=== PATIENT | male | born 1935 | race Caucasian/White ===

== ENCOUNTER → 2017-02-18 | Outpatient (CLI) | payer MEDICARE, BC | LOC: MW.CHGS 08:00 | PROVIDERS: ATTEND Surgery | DX: K21.9 Gastro-esophageal reflux disease without esophagitis (principal); R10.13 Epigastric pain; R19.4 Change in bowel habit; E11.9 Type 2 diabetes mellitus without complications | CPT/HCPCS: 99204 ==

== ENCOUNTER 2017-03-19 09:13 | Day surgery (SDC) | payer MEDICARE, BC ==
[~2017-03-19 09:13] MED LIST: Lactated Ringers 1,000 ML IV SCH; Midazolam 1 MG/ML 2 ML SDV ONE; Propofol 200 MG/20 ML SDV ONE; fentaNYL 100 MCG/2 ML SDV ONE
--- NOTE | 2017-03-19 10:11 | PCM.PREANE ---
Preanesthetic Assessment - Anesthesia/Transfusion/Family Hx Anesthesia History: Prior Anesthesia Without Reaction Family History of Anesthesia Reaction: No Transfusion History: No Prior Transfusion(s) Intubation History: Unknown - Review of Systems General: No Symptoms Pulmonary: No Symptoms Cardiovascular: No Symptoms Gastrointestinal: Constipation Neurological: No Symptoms Other: Reports: None - Physical Assessment NPO Status Date: 03/19/17 NPO Status Time: 02:00 O2 Sat by Pulse Oximetry: 95 Respiratory Rate: 16 Vital Signs: Last Vital Signs Temp 36.4 C 03/19/17 09:49 Pulse 52 L 03/19/17 09:49 Resp 16 03/19/17 09:49 BP 150/72 H 03/19/17 09:49 Pulse Ox 95 03/19/17 09:49 Height: 1.73 m Weight: 83.007 kg ASA Class: 3 Mental Status: Alert & Oriented x3 Airway Class: Mallampati = 2 Dentition: Reports: Bridge (upper front) Thyro-Mental Finger Breadths: 3 Mouth Opening Finger Breadths: 3 ROM/Head Extension: Limited/Partial Lungs: Clear to auscultation, Normal respiratory effort Cardiovascular: Regular Rate, Regular Rhythm - Allergies Allergies/Adverse Reactions: Allergies Allergy/AdvReac Type Severity Reaction Status Date / Time No Known Allergies Allergy Verified 03/13/16 14:11 - Blood Blood Available: No - Anesthesia Plan Pre-Op Medication Ordered: None - Acknowledgements Anesthesia Type Planned: MAC Pt an Appropriate Candidate for the Planned Anesthesia: Yes Alternatives and Risks of Anesthesia Discussed w Pt/Guardian: Yes Pt/Guardian Understands and Agrees with Anesthesia Plan: Yes PreAnesthesia Questionnaire HEENT History: Reports: Allergic Rhinitis, Cataract, Hard of Hearing Other HEENT History: has bilateral hearing aides but does not wear them, wears glasses Cardiovascular History: Reports: High Cholesterol, Hypertension Other Cardiovascular History: occasionally has pain on left side of chest, states has occasional edema to legs and takes HCTZ when needed Respiratory History: Reports: Asthma, Other (See Below) (some SOB) Gastrointestinal History: Reports: GERD, Hiatal Hernia Genitourinary History: Reports: BPH, Prostate Disorder Musculoskeletal History: Reports: Arthritis, Fracture Other Musculoskeletal History: ribs, right wrist Neurological History: Reports: Vertigo Other Neuro History: had problem with vertigo in december and january of 2017, better now Psychiatric History: Reports: None Endocrine/Metabolic History: Reports: Diabetes, Type II, Hypothyroidism, Other ( See Below) Other Endocrine/Metabolic History: had radioactive iodine for over active thyroid Hematologic History: Reports: None Oncologic (Cancer) History: Reports: None Dermatologic History: Reports: None - Past Surgical History Head Surgeries/Procedures: Reports: None HEENT Surgical History: Reports: Cataract Surgery, Tonsillectomy Cardiovascular Surgical History: Reports: None Respiratory Surgical History: Reports: None GI Surgical History: Reports: Colonoscopy, EGD Male Surgical History: Reports: TURP-Transurethral Resection of Prostate, Other (See Below) Other Male Surgeries/Procedures: removal of cyst left testicle Endocrine Surgical History: Reports: None Neurological Surgical History: Reports: None Musculoskeletal Surgical History: Reports: Arthroscopic Knee (left knee), Other (See Below) Other Musculoskeletal Surgeries/Procedures:: 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 Oncologic Surgical History: Reports: None - SUBSTANCE USE Smoking Status *Q: Former Smoker Tobacco Use Within Last Twelve Months: No Recreational Drug Use History: No - HOME MEDS Home Medications: Home Meds Levothyroxine Sodium [Levoxyl] 137 mcg PO DAILY 03/13/16 [History] Lovastatin 40 mg PO BEDTIME 03/13/16 [History] Metoprolol Tartrate 50 mg PO BEDTIME 03/13/16 [History] Omeprazole 20 mg PO DAILY 03/13/16 [History] amLODIPine [Norvasc] 10 mg PO DAILY 03/13/16 [History] metFORMIN HCl [Glucophage] 500 mg PO DAILY 03/13/16 [History] Albuterol [Ventolin HFA] 2 puff INH ASDIRECTED PRN 03/18/17 [History] Docusate Sodium [Stool Softener] 2 tab PO DAILY 03/18/17 [History] Fish Oil/[place]-3 Fatty Acids [Fish Oil 1,000 MG] 1 tab PO DAILY 03/18/17 [ History] Hydrochlorothiazide 25 mg PO ASDIRECTED PRN 03/18/17 [History] Melatonin 5 mg PO BEDTIME 03/18/17 [History] Ubidecarenone/Vitamin E [Co Q-10 50 MG Softgel] 1 tab PO DAILY 03/18/17 [History ] traZODone HCl [Trazodone HCl] 50 mg PO DAILY 03/18/17 [History] - CURRENT (IN HOUSE) MEDS Current Meds: Current Medications Lactated Ringer's (Ringers, Lactated) 1,000 mls @ 125 mls/hr IV ASDIRECTED MILEY Last Admin: 03/19/17 09:46 Dose: 125 mls/hr Discontinued Medications Fentanyl (Sublimaze) Confirm Administered Dose 100 mcg .ROUTE .STK-MED ONE Stop: 03/19/17 07:11 Midazolam HCl (Versed 1 Mg/Ml) Confirm Administered Dose 2 mg .ROUTE .STK-MED ONE Stop: 03/19/17 07:11 Propofol (Diprivan 20 Ml) Confirm Administered Dose 200 mg .ROUTE .STK-MED ONE Stop: 03/19/17 07:10
[2017-03-19] MEDS ORDERED: Glycopyrrolate 0.2 MG/ML SDV ONE (10:33)
[2017-03-19] MEDS ORDERED: Propofol 200 MG/20 ML SDV ONE (10:42)
--- NOTE | 2017-03-19 11:14 | PCM.OPNOTE ---
- General Post-Op/Procedure Note Date of Surgery/Procedure: 03/19/17 Operative Procedure(s): Esophagogastroduodenoscopy with gastric biopsies and gastric polypectomies. Colonoscopy, with, ascending colon, transverse colon, and rectal polypectomies. Pre Op Diagnosis: Abdominal pain, with progressive gastroesophageal reflux disease. Change in bowel habits. Post-Op Diagnosis: Gastritis with gastric polyps. Ascending colon, transverse colon, and rectal polyps. Mild internal hemorrhoids. Anesthesia Technique: MAC (ASA III) Primary Surgeon: Angel Logan Condition: Good Free Text/Narrative:: Dictation [id number] and [id number]. CPT 61730 & [id number]
[2017-03-19] MEDS ORDERED: Lactated Ringers 1,000 ML IV SCH (11:15)
--- NOTE | 2017-03-19 11:16 | PCM.POSTAN ---
POST ANESTHESIA ASSESSMENT - MENTAL STATUS Mental Status: alert, oriented - RESPIRATORY Respiratory Status: respiratory rate WNL, airway patent, O2 saturation stable - CARDIOVASCULAR CV Status: pulse rate WNL, blood pressure stable - GASTROINTESTINAL GI Status: no symptoms - POST OP HYDRATION Hydration Status: adequate & stable - OBSERVATIONS Free Text/Narrative:: no anesthesia problems
[2017-03-19 12:08] VITALS: BP 138/65
--- NOTE | 2017-03-19 13:44 | OR ---
SURGEON: Angel Logan M.D. DATE OF PROCEDURE: 03/19/2017 OPERATION PERFORMED: Colonoscopy with cold ascending colon, transverse colon, and rectal polypectomies. ANESTHESIA: MAC. ASA CLASSIFICATION: III. PREOPERATIVE DIAGNOSIS: Change in bowel habits. POSTOPERATIVE DIAGNOSIS: Colon polyps as described above. DESCRIPTION OF PROCEDURE: With the patient having completed esophagogastroduodenoscopy, he was now positioned in the left lateral decubitus position. The colonoscope was inserted into the rectum and advanced with minimal difficulty to the cecum, where the colonoscope was retroflexed to visualize the ascending colon from below. The colonoscope was then straightened and slowly withdrawn. One small polyp was encountered in the ascending colon and removed with the cold biopsy forceps. The colonoscope was further withdrawn through the ascending colon, hepatic flexure, and transverse colon, where another polyp was encountered and also removed with the cold biopsy forceps. The colonoscope was further withdrawn through the remainder of the transverse colon, splenic flexure, descending colon, sigmoid colon, and into the rectum, where a third polyp was encountered. This was also removed with the cold biopsy forceps. All of these polyps were quite small. No diverticular changes were noted. There was no evidence of angiodysplasia or inflammatory bowel disease. Once the colonoscope was withdrawn to the rectum, it was retroflexed to visualize the anal orifice from above. The patient does have minor internal hemorrhoids. No acute bleeding was noted. The colonoscope was then straightened, the rectum aspirated, and the colonoscope removed. The patient tolerated the procedure well and was taken to recovery room in stable condition. LUANN / KENISHA /[id number]
--- NOTE | 2017-03-19 14:10 | OR ---
SURGEON: Angel Logan M.D. DATE OF PROCEDURE: 03/19/2017 OPERATION PERFORMED: Esophagogastroduodenoscopy with biopsy. ANESTHESIA: MAC. ASA CLASSIFICATION: III. PREOPERATIVE DIAGNOSIS: Epigastric pain with progressive gastroesophageal reflux disease and a history of gastric polyps. POSTOPERATIVE DIAGNOSES: 1. Gastritis. 2. Gastric polyps. DESCRIPTION OF PROCEDURE: The patient was taken to the endoscopy room and positioned on the endoscopy table in the supine position. Time-out was called for appropriate identification of the patient and procedure. Bite-block was placed between the patient's teeth. Monitored anesthesia care was provided. The gastroscope was inserted into the mouth and advanced without difficulty through the esophagus and stomach into the duodenum where examination was carried out in a retrograde fashion. The duodenum shows no acute inflammatory changes, ulcerations, or polyps. The gastroscope was withdrawn into the stomach, which shows a mild to moderate gastritis. Antral biopsies were obtained to look for the presence of Helicobacter pylori. Numerous polyps were identified and the stomach and several of these were removed for histologic analysis. The GE junction was well defined and shows no acute inflammatory changes or ulcerations. The esophagus demonstrates fair contractility. No mid or proximal lesions were identified. The vocal cords were visualized as the scope was withdrawn and noted to move symmetrically. The gastroscope was then removed with the patient having tolerated the procedure well. Following colonoscopy, he was taken to recovery room in stable condition. LUANN DE /[id number]
== END 2017-03-19 11:55 | disposition home or self-care (01) ==
LOC: MW.SDS 09:13
PROVIDERS: ATTEND Surgery
PROC: 0DB68ZX Excision of Stomach, Via Natural or Artificial Opening Endoscopic, Diagnostic (ICD-10-PCS; principal; 2017-03-19)
PROC: 0DBK8ZZ Excision of Ascending Colon, Via Natural or Artificial Opening Endoscopic (ICD-10-PCS; 2017-03-19)
PROC: 0DBL8ZZ Excision of Transverse Colon, Via Natural or Artificial Opening Endoscopic (ICD-10-PCS; 2017-03-19)
PROC: 0DBP8ZZ Excision of Rectum, Via Natural or Artificial Opening Endoscopic (ICD-10-PCS; 2017-03-19)
DX: K29.50 Unspecified chronic gastritis without bleeding (principal); K31.7 Polyp of stomach and duodenum; D12.2 Benign neoplasm of ascending colon; D12.3 Benign neoplasm of transverse colon; K62.1 Rectal polyp; K64.8 Other hemorrhoids; M19.90 Unspecified osteoarthritis, unspecified site; J45.909 Unspecified asthma, uncomplicated; N40.0 Benign prostatic hyperplasia without lower urinary tract symptoms; K21.9 Gastro-esophageal reflux disease without esophagitis; I10 Essential (primary) hypertension; E89.0 Postprocedural hypothyroidism; E11.9 Type 2 diabetes mellitus without complications; E78.00 Pure hypercholesterolemia, unspecified; Z87.891 Personal history of nicotine dependence; Z87.19 Personal history of other diseases of the digestive system; Z91.048 Other nonmedicinal substance allergy status; Z79.899 Other long term (current) drug therapy; Z79.84 Long term (current) use of oral hypoglycemic drugs; Z98.49 Cataract extraction status, unspecified eye; Z90.79 Acquired absence of other genital organ(s); Z90.89 Acquired absence of other organs; Z98.890 Other specified postprocedural states
CPT/HCPCS: 43239; 45380; 82962; J2250; J3010; J7120; 00740; 88305; 88312; J2704